=== PATIENT | male | born 1935 | race African-American/Black ===

== ENCOUNTER 2019-01-11 18:46 | Emergency (ER) | payer MEDICARE, SELFPAY ==
[2019-01-11 19:22] VITALS: BP 154/88; PULSE 74; RESP 12; TEMP 36.4; O2SAT 99
--- NOTE | 2019-01-11 19:47 | ED.EXTPRO ---
HPI - Extremity Problem <Fina Jorge PA-C - Last Filed: 01/11/19 22:32> General Chief complaint: Extremity Problem,Nontraumatic Stated complaint: swollen leg Time Seen by Provider: 01/11/19 18:52 Source: patient Mode of arrival: ambulatory Limitations: no limitations History of Present Illness HPI Narrative: This 83-year-old male was sent here by PCP due to left lower extremity swelling for about 4 days, maybe worse later in the day. He denies any trauma. He denies any pain in the leg or foot. He denies any chest pain or dyspnea and reports that he is feeling well. he does not have any history of blood clots or heart disease. He has not had swelling like this in the past. PCP was concerned that [place] might need an [place] Related Data Home Medications Medication Instructions Recorded Confirmed HYDROCHLOROTHIAZIDE (Hydrodiuril / 25 mg PO Q DAY #0 11/24/10 Hctz) Metoprolol Tartrate (Lopressor) 50 mg PO Q DAY #0 11/24/10 Previous Rx's Medication Instructions Recorded rivaroxaban [Xarelto] 15 mg PO BID 21 Days #42 tab 01/11/19 Review of Systems <Fina Jorge PA-C - Last Filed: 01/11/19 22:32> Review of Systems ROS Unobtainable: All systems reviewed & are unremarkable except as noted in HPI and below PFSH <Fina Jorge PA-C - Last Filed: 01/11/19 22:32> Medical History (Updated 01/11/19 @ 21:07 by Fina Jorge PA-C) HTN (hypertension) (Chronic) Seasonal allergies (Chronic) History of malignant neoplasm of prostate (Resolved) Surgical History (Updated 01/11/19 @ 20:18 by Fina Jorge PA-C) No history of previous surgery (Chronic) Comment: Never smoker Exam <Fina Jorge PA-C - Last Filed: 01/11/19 22:32> Narrative Exam Narrative: GENERAL APPEARANCE: Patient sitting comfortably, in no distress. NECK/THYROID: Neck supple LUNGS: Clear to auscultation bilaterally. HEART: Regular rate and rhythm without murmur, normal S1, S2, no S3 or S4. ABDOMEN: Soft, NT, ND, + BS x 4 quadrants EXTREMITIES: No cyanosis, moderate left pedal edema, none on the right. Edema extends to the left inferior woody. No calf tenderness NEUROLOGIC: Alert and oriented, normal speech, gait and coordination. Initial Vital Signs Initial Vital Signs: Vital Signs Temperature 97.6 F 01/11/19 19:22 Pulse Rate 74 01/11/19 19:22 Respiratory Rate 12 01/11/19 19:22 Blood Pressure 154/88 H 01/11/19 19:22 Pulse Oximetry 99 01/11/19 19:22 <Yovana Singleton DO - Last Filed: 01/12/19 01:42> Initial Vital Signs Initial Vital Signs: Vital Signs Temperature 97.6 F 01/11/19 19:22 Pulse Rate 74 01/11/19 19:22 Respiratory Rate 12 01/11/19 19:22 Blood Pressure 154/88 H 01/11/19 19:22 Pulse Oximetry 99 01/11/19 19:22 Course <Fina Jorge PA-C - Last Filed: 01/11/19 22:32> Additional Information: Per tractor technician patient 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 He has been asymptomatic aside from painless unilateral swelling. will start Xarelto tonight, and he will have prescription filled over here in the morning prior to returning to the [place]. Reviewed findings with he and his , and advised he needs to return to ED if any acute changes such as new chest pain or dyspnea, and they are agreeable. Advised follow-up with PCP in the next few days and subsequent there also dosing to be prescribed there after 21 days of the b.i.d. dosing. He does not have any personal or family history of DVT or risk factors such as recent surgery or immobility. Further workup, i.e. for occult malignancy, can be undertaken with PCP if felt warranted. DVT confirmed on subsequent review with radiologist Orders Ordered: ED Orders 01/11/19 19:54 US periph venous low extrem lt Stat Discontinued Medications Levofloxacin (Levaquin) 750 mg in 150 mls @ 100 mls/hr IV NOW ONE Stop: 01/11/19 21:40 Last Admin: 01/11/19 20:29 Dose: Not Given Rivaroxaban (Xarelto) 15 mg PO NOW ONE Stop: 01/11/19 20:55 Last Admin: 01/11/19 21:16 Dose: 15 mg Vital Signs - 8 hr 01/11/19 19:22 01/11/19 21:20 Temperature 97.6 F Pulse Rate 74 62 Respiratory Rate 12 18 Blood Pressure 154/88 H Blood Pressure [Left Arm] 150/78 H Pulse Oximetry 99 97 <Yovana Singleton DO - Last Filed: 01/12/19 01:42> Orders Ordered: ED Orders 01/11/19 19:54 US periph venous low extrem lt Stat Discontinued Medications Levofloxacin (Levaquin) 750 mg in 150 mls @ 100 mls/hr IV NOW ONE Stop: 01/11/19 21:40 Last Admin: 01/11/19 20:29 Dose: Not Given Rivaroxaban (Xarelto) 15 mg PO NOW ONE Stop: 01/11/19 20:55 Last Admin: 01/11/19 21:16 Dose: 15 mg Vital Signs - 8 hr 01/11/19 19:22 01/11/19 21:20 Temperature 97.6 F Pulse Rate 74 62 Respiratory Rate 12 18 Blood Pressure 154/88 H Blood Pressure [Left Arm] 150/78 H Pulse Oximetry 99 97 MDM - Extremity (Nontraumatic) <Fina Jorge PA-C - Last Filed: 01/11/19 22:32> Imaging Data Venous US: Radiologist's impression: [place] [address] Ultrasound Report Addendum Patient: Jaiden Hurd#: [id number] : 6Acct:[id number] Age/Sex: 83 / MDate of Service: 01/11/19 Loc: ED Accession Number: [id number] Procedure: US [facility] venous low extrem lt Ordering Provider: Fina Jorge P.A-C ADDENDUM This report includes an Addendum and supersedes previous reports for this exam. PROCEDURE: US PERIP VENOUS LOW EXTREM LT INDICATIONS: unilateral edema TECHNIQUE: Real-time imaging, as well as color and pulse Doppler interrogation, were performed of the lower extremity deep veins from the inguinal ligament to the popliteal fossa. COMPARISON: None. FINDINGS: There is segmental deep venous thrombosis, likely occlusive within the left popliteal vein. The remainder of the left lower extremity deep venous system appears patent. IMPRESSION: 1. Segmental occlusive deep venous thrombosis within the left popliteal vein. Dictated by: Bethel Craft M.D. on 01/11/2019 at 21:40 Approved by: Bethel Craft M.D. on 01/11/2019 at 21:40 ADDENDUM: Findings discussed with AMISHA Joy on 01/11/19 at 10:15 PM. Dictated by: Bethel Craft M.D. on 01/11/2019 at 22:18 Approved by: Bethel Craft M.D. on 01/11/2019 at 22:20 Addendum Dictated By:Bethel Craft MD Addendum Signed By: Addendum Cosigned By: DD/ /24/2223 TD/TT: 01/11/1902/24/2223 PROCEDURE: US PERIPH VENOUS LOW EXTREM LT INDICATIONS: unilateral edema TECHNIQUE: Real-time imaging, as well as color and pulse Doppler interrogation, were performed of the lower extremity deep veins from the inguinal ligament to the popliteal fossa. COMPARISON: None. FINDINGS: The common femoral, femoral and popliteal veins are normally compressible, and free of intraluminal thrombus. Color and pulse Doppler demonstrate normal phasic intraluminal flow. There is normal augmentation response to distal compression maneuver. IMPRESSION: 1. No evidence of deep venous thrombosis in the left lower extremity. Dictated by: Bethel Craft M.D. on 01/11/2019 at 21:40 Approved by: Bethel Craft M.D. on 01/11/2019 at 21:40 Discharge Plan Departure Patient Disposition: Home Clinical Impression: Deep vein thrombosis of lower extremity Qualifiers: Affected thrombotic vein of extremity: popliteal Chronicity: acute Laterality: left Qualified Code(s): I82.432 - Acute embolism and thrombosis of left popliteal vein Discharge Date/Time: 01/11/19 21:30 Interventions: ED Discharge Assessment Last Done: 01/11/19 21:30 Instructions: DI for Deep Vein Thrombosis Prescriptions: New Xarelto 15 mg tablet 15 mg PO BID 21 Days Qty: 42 RF: 0 No Action HYDROCHLOROTHIAZIDE (Hydrodiuril / Hctz) 25 mg PO Q DAY Qty: 0 RF: 0 Metoprolol Tartrate (Lopressor) 50 mg PO Q DAY Qty: 0 RF: 0 Referrals: Dayron Ball MD [Physician] - <Yovana Singleton DO - Last Filed: 01/12/19 01:42> Cosign ED Attending Estherignature Attestation: I was immediately available in the department for consultation. Documentation has been reviewed. I agree with assessment and plan.
--- NOTE | 2019-01-11 19:54 | DI.US.S_ITS ---
PROCEDURE: US PERIPH VENOUS LOW EXTREM LT INDICATIONS: unilateral edema TECHNIQUE: Real-time imaging, as well as color and pulse Doppler interrogation, were performed of the lower extremity deep veins from the inguinal ligament to the popliteal fossa. COMPARISON: None. FINDINGS: The common femoral, femoral and popliteal veins are normally compressible, and free of intraluminal thrombus. Color and pulse Doppler demonstrate normal phasic intraluminal flow. There is normal augmentation response to distal compression maneuver. IMPRESSION: 1. No evidence of deep venous thrombosis in the left lower extremity. Dictated by: Bethel Craft M.D. on 01/11/2019 at 21:40 Approved by: Bethel Craft M.D. on 01/11/2019 at 21:40
--- NOTE | 2019-01-11 20:10 | ED_ITS ---
HPI - Extremity Problem <Fina Jorge PA-C - Last Filed: 01/11/19 22:32> General Chief complaint: Extremity Problem,Nontraumatic Stated complaint: swollen leg Time Seen by Provider: 01/11/19 18:52 Source: patient Mode of arrival: ambulatory Limitations: no limitations History of Present Illness HPI Narrative: This 83-year-old male was sent here by PCP due to left lower extremity swelling for about 4 days, maybe worse later in the day. He denies any trauma. He denies any pain in the leg or foot. He denies any chest pain or dyspnea and reports that he is feeling well. he does not have any history of blood clots or heart disease. He has not had swelling like this in the past. PCP was concerned that he might need an ultrasound [place] Related Data Home Medications Medication Instructions Recorded Confirmed HYDROCHLOROTHIAZIDE (Hydrodiuril / 25 mg PO Q DAY #0 11/24/10 Hctz) Metoprolol Tartrate (Lopressor) 50 mg PO Q DAY #0 11/24/10 Previous Rx's Medication Instructions Recorded rivaroxaban [Xarelto] 15 mg PO BID 21 Days #42 tab 01/11/19 Review of Systems <Fina Jorge PA-C - Last Filed: 01/11/19 22:32> Review of Systems ROS Unobtainable: All systems reviewed & are unremarkable except as noted in HPI and below PFSH <Fina Jorge PA-C - Last Filed: 01/11/19 22:32> Medical History (Updated 01/11/19 @ 21:07 by Fina Jorge PA-C) HTN (hypertension) (Chronic) Seasonal allergies (Chronic) History of malignant neoplasm of prostate (Resolved) Surgical History (Updated 01/11/19 @ 20:18 by Fina Jorge PA-C) No history of previous surgery (Chronic) Comment: Never smoker Exam <Fina Jorge PA-C - Last Filed: 01/11/19 22:32> Narrative Exam Narrative: GENERAL APPEARANCE: Patient sitting comfortably, in no distress. NECK/THYROID: Neck supple LUNGS: Clear to auscultation bilaterally. HEART: Regular rate and rhythm without murmur, normal S1, S2, no S3 or S4. ABDOMEN: Soft, NT, ND, + BS x 4 quadrants EXTREMITIES: No cyanosis, moderate left pedal edema, none on the right. Edema extends to the left inferior woody. No calf tenderness NEUROLOGIC: Alert and oriented, normal speech, gait and coordination. Initial Vital Signs Initial Vital Signs: Vital Signs Temperature 97.6 F 01/11/19 19:22 Pulse Rate 74 01/11/19 19:22 Respiratory Rate 12 01/11/19 19:22 Blood Pressure 154/88 H 01/11/19 19:22 Pulse Oximetry 99 01/11/19 19:22 <Yovana Singleton DO - Last Filed: 01/12/19 01:42> Initial Vital Signs Initial Vital Signs: Vital Signs Temperature 97.6 F 01/11/19 19:22 Pulse Rate 74 01/11/19 19:22 Respiratory Rate 12 01/11/19 19:22 Blood Pressure 154/88 H 01/11/19 19:22 Pulse Oximetry 99 01/11/19 19:22 Course <Fina Jorge PA-C - Last Filed: 01/11/19 22:32> Additional Information: Per word processor technician patient 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 He has been asymptomatic aside from painless unilateral swelling. will start Xarelto tonight, and he will have prescription filled over here in the morning prior to returning to the [place]. Reviewed findings with he and his , and advised he needs to return to ED if any acute changes such as new chest pain or dyspnea, and they are agreeable. Advised follow-up with PCP in the next few days and subsequent there also dosing to be prescribed there after 21 days of the b.i.d. dosing. He does not have any personal or family history of DVT or risk factors such as recent surgery or immobility. Further workup, i.e. for occult malignancy, can be undertaken with PCP if felt warranted. DVT confirmed on subsequent review with radiologist Orders Ordered: ED Orders 01/11/19 19:54 US periph venous low extrem lt Stat Discontinued Medications Levofloxacin (Levaquin) 750 mg in 150 mls @ 100 mls/hr IV NOW ONE Stop: 01/11/19 21:40 Last Admin: 01/11/19 20:29 Dose: Not Given Rivaroxaban (Xarelto) 15 mg PO NOW ONE Stop: 01/11/19 20:55 Last Admin: 01/11/19 21:16 Dose: 15 mg Vital Signs - 8 hr 01/11/19 19:22 01/11/19 21:20 Temperature 97.6 F Pulse Rate 74 62 Respiratory Rate 12 18 Blood Pressure 154/88 H Blood Pressure [Left Arm] 150/78 H Pulse Oximetry 99 97 <Yovana Singleton DO - Last Filed: 01/12/19 01:42> Orders Ordered: ED Orders 01/11/19 19:54 US periph venous low extrem lt Stat Discontinued Medications Levofloxacin (Levaquin) 750 mg in 150 mls @ 100 mls/hr IV NOW ONE Stop: 01/11/19 21:40 Last Admin: 01/11/19 20:29 Dose: Not Given Rivaroxaban (Xarelto) 15 mg PO NOW ONE Stop: 01/11/19 20:55 Last Admin: 01/11/19 21:16 Dose: 15 mg Vital Signs - 8 hr 01/11/19 19:22 01/11/19 21:20 Temperature 97.6 F Pulse Rate 74 62 Respiratory Rate 12 18 Blood Pressure 154/88 H Blood Pressure [Left Arm] 150/78 H Pulse Oximetry 99 97 MDM - Extremity (Nontraumatic) <Fina Jorge PA-C - Last Filed: 01/11/19 22:32> Imaging Data Venous US: Radiologist's impression: [place] [address] Ultrasound Report Addendum Patient: Jaiden Hurd#: [id number] : 6Acct:[id number] Age/Sex: 83 / MDate of Service: 01/11/19 Loc: ED Accession Number: [id number] Procedure: [facility] venous low extrem lt Ordering Provider: Fina Jorge P.A-C ADDENDUM This report includes an Addendum and supersedes previous reports for this exam. PROCEDURE: US PERIP VENOUS LOW EXTREM LT INDICATIONS: unilateral edema TECHNIQUE: Real-time imaging, as well as color and pulse Doppler interrogation, were performed of the lower extremity deep veins from the inguinal ligament to the popliteal fossa. COMPARISON: None. FINDINGS: There is segmental deep venous thrombosis, likely occlusive within the left popliteal vein. The remainder of the left lower extremity deep venous system appears patent. IMPRESSION: 1. Segmental occlusive deep venous thrombosis within the left popliteal vein. Dictated by: Bethel Craft M.D. on 01/11/2019 at 21:40 Approved by: Bethel Craft M.D. on 01/11/2019 at 21:40 ADDENDUM: Findings discussed with AMISHA Joy on 01/11/19 at 10:15 PM. Dictated by: Bethel Craft M.D. on 01/11/2019 at 22:18 Approved by: Bethel Craft M.D. on 01/11/2019 at 22:20 Addendum Dictated By:Bethel Craft MD Addendum Signed By: Addendum Cosigned By: DD/ /24/2223 TD/TT: 01/11/1902/24/2223 PROCEDURE: US PERIPH VENOUS LOW EXTREM LT INDICATIONS: unilateral edema TECHNIQUE: Real-time imaging, as well as color and pulse Doppler interrogation, were performed of the lower extremity deep veins from the inguinal ligament to the popliteal fossa. COMPARISON: None. FINDINGS: The common femoral, femoral and popliteal veins are normally compressible, and free of intraluminal thrombus. Color and pulse Doppler demonstrate normal phasic intraluminal flow. There is normal augmentation response to distal compression maneuver. IMPRESSION: 1. No evidence of deep venous thrombosis in the left lower extremity. Dictated by: Bethel Craft M.D. on 01/11/2019 at 21:40 Approved by: Bethel Craft M.D. on 01/11/2019 at 21:40 Discharge Plan Departure Patient Disposition: Home Clinical Impression: Deep vein thrombosis of lower extremity Qualifiers: Affected thrombotic vein of extremity: popliteal Chronicity: acute Laterality: left Qualified Code(s): I82.432 - Acute embolism and thrombosis of left popliteal vein Discharge Date/Time: 01/11/19 21:30 Interventions: ED Discharge Assessment Last Done: 01/11/19 21:30 Instructions: DI for Deep Vein Thrombosis Prescriptions: New Xarelto 15 mg tablet 15 mg PO BID 21 Days Qty: 42 RF: 0 No Action HYDROCHLOROTHIAZIDE (Hydrodiuril / Hctz) 25 mg PO Q DAY Qty: 0 RF: 0 Metoprolol Tartrate (Lopressor) 50 mg PO Q DAY Qty: 0 RF: 0 Referrals: Dayron Ball MD [Physician] - <Yovana Singleton DO - Last Filed: 01/12/19 01:42> Cosign ED Attending Estherignature Attestation: I was immediately available in the department for consultation. Documentation has been reviewed. I agree with assessment and plan.
[2019-01-11] MEDS: RIVAROXABAN 10 MG TABLET 15 MG PO (21:16)
[2019-01-11 21:20] VITALS: BP 150/78; PULSE 62; RESP 18; O2SAT 97
== END 2019-01-11 21:30 | disposition home or self-care (01) ==
PROVIDERS: Emergency Provider Internal Medicine
DX: I82.432 Acute embolism and thrombosis of left popliteal vein (principal)
CPT/HCPCS: 93971; 99282; 99283

== ENCOUNTER → 2019-04-07 09:38 | Outpatient (CLI) | payer MEDICARE, SELFPAY ==
--- NOTE | 2019-04-07 | DI.NM.S_ITS ---
PROCEDURE: NM BONE SCAN WHOLE BODY RADIOPHARMACEUTICAL: 22 mCi Tc-99m MDP IV. INDICATIONS: PROSTATE CANCER TECHNIQUE: Delayed whole-body scintigrams were obtained approximately 3-4 hours after intravenous injection of radiotracer. Anterior and posterior views were acquired from vertex to feet. Additional left and right oblique views of the pelvis were obtained. COMPARISON: None. FINDINGS: No definite suspicious osseous uptake suggestive of metastatic disease. There are bilateral foci of uptake medially in the mid foot likely related to degenerative changes in the region of the 1st tarsometatarsal joints. Mild periarticular uptake also demonstrated along the knees, shoulders, and wrists bilaterally likely related to degenerative changes. There is a small linear region of uptake in the left paracentral region of the cervical spine likely secondary to degenerative disc disease. IMPRESSION: 1. No definite evidence of osseous metastatic disease. 2. Bilateral foci of periarticular uptake as well as uptake in the mid cervical spine likely related to degenerative changes. If clinically indicated, a dedicated cervical spine x-ray may be performed for further evaluation. Dictated by: Bethel Craft M.D. on 04/08/2019 at 8:07 Approved by: Bethel Craft M.D. on 04/08/2019 at 8:10
== END ==
PROVIDERS: Visit Provider Family Medicine
DX: C61 Malignant neoplasm of prostate (principal)
CPT/HCPCS: 78306; A9503

== ENCOUNTER → 2020-11-03 11:10 | Outpatient (CLI) | payer MEDICARE, SELFPAY ==
--- NOTE | 2020-11-03 11:24 | DI.CT.S_ITS ---
PROCEDURE: CT ABDOMEN PELVIS WO/W CON INDICATIONS: Flank pain TECHNIQUE: Optional 5 mm thick noncontrast images acquired from the diaphragm to the symphysis pubis. After the administration of intravenous contrast, 5 mm thick images acquired from the diaphragm to the symphysis pubis after a 10-minute delay. 2 mm thick coronal and sagittal reformats were then performed of the kidneys and ureters. For radiation dose reduction, the following was used: automated exposure control, adjustment of mA and/or kV according to patient size. COMPARISON: None. FINDINGS: Image quality: Excellent. Lung bases: Lung bases are clear. Heart size is normal. Urinary system: Several cortical and corticomedullary cysts are present bilaterally. There is a mildly complicated, finely septated parapelvic cyst in the right renal sinus with fine septal calcifications measuring 4.0 x 3.4 cm in the axial plane. No solid masses in either kidney. There is compression of the right midpole collecting system by the right parapelvic cyst. Collecting system appears otherwise normal. Opacified portions of both ureters demonstrate normal caliber. Urinary bladder wall appears thickened, potentially related under distension. The prostate gland is enlarged and there brachytherapy seeds present.. No calcified bladder stones. Other solid organs: Liver is normal in size and enhancement. Gallbladder is unremarkable. . Biliary system is non dilated. Pancreas enhances normally. Spleen is normal in size and enhancement. No adrenal nodules. Peritoneum and bowel: Bowel loops demonstrate normal wall thickness and caliber. No free fluid or air. Nodes and vessels: No retroperitoneal or mesenteric adenopathy by size criteria. Aorta and inferior vena cava are normal in size. Abdominal wall: No ventral hernias. Pelvis: No pathologic free pelvic fluid. No inguinal hernias or adenopathy. Bones: No suspicious bony lesions. There is a bone island in the right sacral ala. Degenerative disc and endplate changes are seen in the lumbar spine. No vertebral body compression fractures. IMPRESSION: 1. No evidence of obstructive uropathy or urinary calcification. 2. There is a mildly complicated right parapelvic cyst measuring 4.0 cm. Consider one year follow-up. 3. Other simple appearing bilateral renal cysts. 4. Prostatomegaly with brachytherapy seeds present. Dictated by: Kamilla Avila M.D. on 11/03/2020 at 15:18 Approved by: Kamilla Avila M.D. on 11/03/2020 at 15:26
== END ==
PROVIDERS: PCP Family Medicine; Referring Provider Family Medicine; Visit Provider Family Medicine
DX: R10.9 Unspecified abdominal pain (principal); N28.1 Cyst of kidney, acquired
CPT/HCPCS: 74178; Q9967

== ENCOUNTER → 2021-02-13 10:20 | Outpatient (CLI) | payer MEDICARE, SELFPAY ==
[2021-02-13 11:56] LABS: BUN Creatinine Ratio 22.1 (6-22); Blood Urea Nitrogen 23 mg/dL (9-20); Calcium 9.3 mg/dL (8.4-10.2); Carbon Dioxide 28 mmol/L (22-32); Chloride 104 mmol/L (98-107); Estimated Glomerular Filt Rate > 60.0 mL/min (>60); Glucose 105 mg/dL (80-110); HEMOLYSIS < 15 (0-50); Potassium 4.1 mmol/L (3.4-5.1); Sodium 137 mmol/L (137-145)
--- NOTE | 2021-02-13 12:53 | DI.CT.S_ITS ---
PROCEDURE: CT ABDOMEN PELVIS WO/W CON INDICATIONS: PARAPELVIC RENAL CYST TECHNIQUE: After the administration of oral contrast, 5 mm thick sections acquired from the diaphragms to the iliac crests. After the administration of intravenous contrast, 5 mm thick sections acquired from the diaphragms to the symphysis. 5 mm thick coronal and sagittal reformats were acquired. For radiation dose reduction, the following was used: automated exposure control, adjustment of mA and/or kV according to patient size. COMPARISON: [facility], CT, CT ABDOMEN PELVIS WO/W CON, 11/03/2020, 11:13. FINDINGS: Image quality: Excellent. Lung bases: Lung bases are clear. Heart size is normal. Solid organs: Liver: The liver has no mass or intrahepatic biliary ductal dilatation. The portal vein and hepatic veins are patent. Biliary: The gallbladder has no gallstones, pericholecystic fluid, gallbladder wall thickening, or surrounding inflammatory change. Pancreas: The pancreas has no mass or ductal dilatation. There is no surrounding inflammation. Spleen: Normal size. There are no masses. Adrenals: No hypertrophy or nodules. Kidneys: Multiple cortical and corticomedullary cysts are present bilaterally. A right mildly complicated, finely septated parapelvic cyst in the right renal sinus with fine septal calcifications measuring 4.0 x 3.4 centimeters is unchanged in size and appearance on the current exam compared to 11/03/2020. No solid mass. Peritoneum and bowel: The distal esophagus and stomach are normal. The small bowel has a normal caliber and appearance. There is increased stool throughout the large bowel. No free fluid or air. Nodes and vessels: No retroperitoneal or mesenteric adenopathy by size criteria. Aorta and inferior vena cava are normal in size. Miscellaneous: No abdominal wall mass or hernia. PELVIS: Genitourinary: The bladder has no wall thickening or mass. No bladder calcifications. The prostate is enlarged with brachytherapy seeds present. Miscellaneous: No inguinal hernias or adenopathy. Bones: Degenerative changes with no focal abnormality. Multiple osteophytes are seen of the lumbar spine. No vertebral body compression fractures. A bone island in the right sacral ala is unchanged. IMPRESSION: 1. 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 Recommend follow-up at 1 year status post initial exam and then annually for 5 years to ensure stability. 2. Multiple simple bilateral renal cysts. Dictated by: Nima Metz M.D. on 02/13/2021 at 14:27 Approved by: Nima Metz M.D. on 02/13/2021 at 14:41
== END ==
PROVIDERS: PCP Family Medicine; Referring Provider Family Medicine; Visit Provider Family Medicine
DX: N28.1 Cyst of kidney, acquired (principal)
CPT/HCPCS: 36415; 74178; 80048; Q9967

== ENCOUNTER → 2021-10-12 10:01 | Outpatient (CLI) | payer MEDICARE, SELFPAY ==
[2021-10-12 19:24] LABS: INR 1.8 (0.9-1.3); Prothrombin Time 20.5 SECONDS (10.1-12.7)
[2021-10-12 19:31] LABS: Add Manual Diff / Slide Review NO; Basophils Absolute Auto 100 /uL (0-100); Eosinophils Absolute Auto 100 /uL (0-450); Eosinophils Percent Auto 1.5 % (2-4); Hematocrit 39.3 % (41-53); Lymphocytes Absolute Auto 2000 /uL (1100-4500); Lymphocytes Percent Auto 39.2 % (25-40); Mean Corpuscular Hemoglobin 27.8 PG (26-34); Mean Corpuscular Volume 84.3 fL (80-100); Monocytes Absolute Auto 600 /uL (0-900); Monocytes Percent Auto 12.5 % (3-14); Neutrophils Absolute Auto 2300 /uL (1500-7000); Neutrophils Percent Auto 45.8 % (50-75); Platelet Count 264 X10^3/uL (150-400); Red Blood Cell Count 4.67 X10^6/uL (4.5-5.9); Red Cell Distribution Width 14.6 % (11.6-14.8); White Blood Cell Count 5.1 X10^3/uL (4.5-11.0)
[2021-10-12 19:45] LABS: Alanine Aminotransferase 25 IU/L (<50); Albumin 4.1 g/dL (3.5-5.0); Albumin Globulin Ratio 1.2 (1.0-2.8); Alkaline Phosphatase 63 U/L (38-126); Aspartate Aminotransferase 40 IU/L (17-59); BUN Creatinine Ratio 22.4 (6-22); Bilirubin Total 0.7 mg/dL (0.2-1.3); Blood Urea Nitrogen 26 mg/dL (9-20); Calcium 9.5 mg/dL (8.4-10.2); Carbon Dioxide 28 mmol/L (22-32); Chloride 106 mmol/L (98-107); Cholesterol 227 mg/dL (140-199); Estimated Glomerular Filt Rate 59.8 mL/min (>60); Globulin 3.5 g/dL (1.7-4.1); Glucose 100 mg/dL (80-110); HDL Cholesterol 79 mg/dL (40-60); HEMOLYSIS < 15 (0-50); LDL Cholesterol Calculated 130 mg/dL (<100); Potassium 4.4 mmol/L (3.4-5.1); Sodium 138 mmol/L (137-145); Total Protein 7.6 g/dL (6.3-8.2); Triglycerides 92 mg/dL (35-150)
== END ==
PROVIDERS: PCP Family Medicine; Visit Provider Family Medicine
DX: I10 Essential (primary) hypertension (principal); I82.409 Acute embolism and thrombosis of unspecified deep veins of unspecified lower extremity; Z79.01 Long term (current) use of anticoagulants
CPT/HCPCS: 80053; 80061; 85025; 85610

== ENCOUNTER → 2021-11-08 10:42 | Outpatient (CLI) | payer OTHER, MEDICARE, SELFPAY ==
--- NOTE | 2021-11-08 | DI.MRI.S_ITS ---
PROCEDURE: MR BRAIN (IAC) WWO CON INDICATIONS: Sensorineural hearing loss, bilateral TECHNIQUE: Noncontrast sagittal T1 spin echo, axial FLAIR, axial gradient echo, axial diffusion and ADC through the brain. Axial thin-slice 3D CISS, coronal TruFISP, axial T1 spin echo with fat saturation through the internal auditory canals. After the administration of contrast, thin slice axial and coronal T1 spin echo with fat saturation through the internal auditory canals, and axial T1 spin echo with fat saturation through the brain. COMPARISON: None. FINDINGS: Image quality: Excellent. Cerebellopontine angles: No cerebellopontine angle masses. Inner ear structures appear normally formed. No suspicious enhancement in the internal auditory canal or along the course of the 7th cranial nerve. CSF spaces: Ventricles are normal in size and shape. No extra-axial fluid collections. Basal cisterns are patent. Brain: No intracranial bleeds or mass effects. Tirado-white matter interface is intact. No abnormal intracranial enhancement. Diffusion weighted images demonstrate no acute ischemic insults. Brainstem appears normal. Normal intravascular flow voids are present. Skull and face: Calvarial marrow signal is normal. Orbits appear normal. Sinuses: Right maxillary sinus mucosal thickening measures up to 4 mm with internal inter sinus debris noted in IMPRESSION: Unremarkable MRI of the internal auditory canals without evidence of mass or abnormal enhancement. Mild atrophy and white matter chronic ischemic change without intracranial infarct or hemorrhage. Incidental right maxillary mucosal sinus disease Approved by: Lance Wheatley M.D. on 11/08/2021 at 12:50
== END ==
PROVIDERS: PCP Family Medicine; Referring Provider Physician Assistant Surgical; Visit Provider Physician Assistant Surgical
DX: H90.3 Sensorineural hearing loss, bilateral (principal)
CPT/HCPCS: 70553; A9579

== ENCOUNTER → 2022-11-20 10:20 | Outpatient (CLI) | payer MEDICARE, SELFPAY ==
[2022-11-20 19:08] LABS: Add Manual Diff / Slide Review NO; Basophils Absolute Auto 0 /uL (0-100); Basophils Percent Auto 0.5 % (0-2); Eosinophils Absolute Auto 100 /uL (0-450); Eosinophils Percent Auto 1.5 % (2-4); Hematocrit 38.4 % (41-53); Hemoglobin 12.6 g/dL (13.5-17.5); Lymphocytes Absolute Auto 1300 /uL (1100-4500); Lymphocytes Percent Auto 20.4 % (25-40); Mean Corpuscular HGB Conc 32.9 % (30-36); Mean Corpuscular Hemoglobin 27.8 PG (26-34); Mean Corpuscular Volume 84.4 fL (80-100); Monocytes Absolute Auto 700 /uL (0-900); Monocytes Percent Auto 11.7 % (3-14); Neutrophils Absolute Auto 4100 /uL (1500-7000); Neutrophils Percent Auto 65.9 % (50-75); Platelet Count 287 X10^3/uL (150-400); Red Blood Cell Count 4.54 X10^6/uL (4.5-5.9); Red Cell Distribution Width 14.4 % (11.6-14.8); White Blood Cell Count 6.3 X10^3/uL (4.5-11.0)
[2022-11-20 19:18] LABS: D Dimer 282 ng/ml (<500)
[2022-11-20 19:30] LABS: Alanine Aminotransferase 25 IU/L (<50); Albumin 3.7 g/dL (3.5-5.0); Albumin Globulin Ratio 1.1 (1.0-2.8); Alkaline Phosphatase 78 U/L (38-126); Aspartate Aminotransferase 41 IU/L (17-59); BUN Creatinine Ratio 21.1 (6-22); Bilirubin Total 0.4 mg/dL (0.2-1.3); Blood Urea Nitrogen 23 mg/dL (9-20); Calcium 8.9 mg/dL (8.4-10.2); Carbon Dioxide 29 mmol/L (22-32); Chloride 102 mmol/L (98-107); Estimated Glomerular Filt Rate > 60 mL/min (>60); Globulin 3.5 g/dL (1.7-4.1); Glucose 92 mg/dL (80-110); HEMOLYSIS < 15 (0-50); Potassium 4.5 mmol/L (3.4-5.1); Sodium 139 mmol/L (137-145); Total Protein 7.2 g/dL (6.3-8.2)
== END ==
PROVIDERS: PCP Physician Assistant; Visit Provider Physician Assistant
DX: I82.409 Acute embolism and thrombosis of unspecified deep veins of unspecified lower extremity (principal); Z79.899 Other long term (current) drug therapy; R20.9 Unspecified disturbances of skin sensation; Z79.01 Long term (current) use of anticoagulants
CPT/HCPCS: 80053; 85025; 85379

== ENCOUNTER → 2022-11-29 14:45 | Outpatient (CLI) | payer MEDICARE, SELFPAY ==
[2022-12-02 10:07] LABS: Fecal Immunochemical Test Negative (Negative)
== END ==
PROVIDERS: PCP Physician Assistant; Visit Provider Physician Assistant
DX: D64.9 Anemia, unspecified (principal); Z12.11 Encounter for screening for malignant neoplasm of colon
CPT/HCPCS: 82274

== ENCOUNTER → 2022-12-18 09:10 | Outpatient (CLI) | payer MEDICARE, SELFPAY ==
[2022-12-18 19:34] LABS: Add Manual Diff / Slide Review NO; Basophils Absolute Auto 100 /uL (0-100); Basophils Percent Auto 0.8 % (0-2); Eosinophils Absolute Auto 100 /uL (0-450); Eosinophils Percent Auto 1.6 % (2-4); Hematocrit 36.1 % (41-53); Hemoglobin 11.8 g/dL (13.5-17.5); Lymphocytes Absolute Auto 1700 /uL (1100-4500); Lymphocytes Percent Auto 18.8 % (25-40); Mean Corpuscular HGB Conc 32.6 % (30-36); Mean Corpuscular Hemoglobin 27.4 PG (26-34); Mean Corpuscular Volume 84.2 fL (80-100); Monocytes Absolute Auto 1000 /uL (0-900); Monocytes Percent Auto 11.8 % (3-14); Neutrophils Absolute Auto 6000 /uL (1500-7000); Platelet Count 423 X10^3/uL (150-400); Red Blood Cell Count 4.29 X10^6/uL (4.5-5.9); Red Cell Distribution Width 14.2 % (11.6-14.8); White Blood Cell Count 8.9 X10^3/uL (4.5-11.0)
[2022-12-18 20:53] LABS: Erythrocyte Sedimentation Rate 66 MM/HR (0-15)
== END ==
PROVIDERS: PCP Physician Assistant; Visit Provider Physician Assistant
DX: L03.011 Cellulitis of right finger (principal); L03.90 Cellulitis, unspecified; R79.1 Abnormal coagulation profile
CPT/HCPCS: 84550; 85025; 85651

== ENCOUNTER → 2023-01-20 11:01 | Outpatient (CLI) | payer MEDICARE, SELFPAY ==
[2023-01-20 20:24] LABS: Add Manual Diff / Slide Review NO; Basophils Absolute Auto 0 /uL (0-100); Basophils Percent Auto 0.5 % (0-2); Eosinophils Absolute Auto 100 /uL (0-450); Eosinophils Percent Auto 1.7 % (2-4); Hematocrit 34.4 % (41-53); Hemoglobin 11.3 g/dL (13.5-17.5); Lymphocytes Absolute Auto 1900 /uL (1100-4500); Lymphocytes Percent Auto 27.5 % (25-40); Mean Corpuscular Hemoglobin 27.2 PG (26-34); Mean Corpuscular Volume 82.6 fL (80-100); Monocytes Absolute Auto 900 /uL (0-900); Monocytes Percent Auto 13.5 % (3-14); Neutrophils Absolute Auto 3900 /uL (1500-7000); Neutrophils Percent Auto 56.8 % (50-75); Platelet Count 276 X10^3/uL (150-400); Red Blood Cell Count 4.16 X10^6/uL (4.5-5.9); Red Cell Distribution Width 14.7 % (11.6-14.8); White Blood Cell Count 6.8 X10^3/uL (4.5-11.0)
[2023-01-20 20:43] LABS: HEMOLYSIS < 15 (0-50); Iron 75 ug/dL (49-181)
[2023-01-20 20:45] LABS: Cholesterol 169 mg/dL (140-199); HDL Cholesterol 68 mg/dL (40-60); LDL Cholesterol Calculated 90 mg/dL (<100); Triglycerides 55 mg/dL (35-150)
[2023-01-20 20:53] LABS: Percent Iron Saturation 27 % (20-50); Total Iron Binding Capacity 275 ug/dL (261-462); Transferrin 185 mg/dL (206-381)
[2023-01-20 21:11] LABS: Ferritin 116 ng/mL (18-464)
[2023-01-20 21:17] LABS: INR 4.8 (0.9-1.3)
== END ==
PROVIDERS: PCP Physician Assistant; Visit Provider Physician Assistant
DX: I10 Essential (primary) hypertension (principal); D64.9 Anemia, unspecified; Z79.01 Long term (current) use of anticoagulants
CPT/HCPCS: 80061; 82728; 83540; 83550; 85025; 85610

== ENCOUNTER → 2023-04-01 13:15 | Outpatient (CLI) | payer MEDICARE, SELFPAY ==
[2023-04-01 20:25] LABS: Add Manual Diff / Slide Review NO; Basophils Absolute Auto 100 /uL (0-100); Basophils Percent Auto 0.8 % (0-2); Eosinophils Absolute Auto 100 /uL (0-450); Eosinophils Percent Auto 1.2 % (2-4); Hematocrit 34.4 % (41-53); Hemoglobin 11.2 g/dL (13.5-17.5); Lymphocytes Absolute Auto 2000 /uL (1100-4500); Lymphocytes Percent Auto 28.8 % (25-40); Mean Corpuscular HGB Conc 32.5 % (30-36); Mean Corpuscular Hemoglobin 26.8 PG (26-34); Mean Corpuscular Volume 82.5 fL (80-100); Monocytes Absolute Auto 1100 /uL (0-900); Monocytes Percent Auto 15.1 % (3-14); Neutrophils Absolute Auto 3800 /uL (1500-7000); Neutrophils Percent Auto 54.1 % (50-75); Platelet Count 366 X10^3/uL (150-400); Red Blood Cell Count 4.17 X10^6/uL (4.5-5.9); Red Cell Distribution Width 15.7 % (11.6-14.8)
[2023-04-01 20:48] LABS: Transferrin 172 mg/dL (206-381)
[2023-04-01 21:03] LABS: Ferritin 137 ng/mL (18-464)
[2023-04-01 21:17] LABS: Vitamin B12 403 pg/mL (239-931)
== END ==
PROVIDERS: PCP Physician Assistant; Visit Provider Physician Assistant
DX: D64.9 Anemia, unspecified (principal); I10 Essential (primary) hypertension
CPT/HCPCS: 82607; 82728; 84466; 85025

== ENCOUNTER → 2023-06-04 10:31 | Outpatient (CLI) | payer MEDICARE, SELFPAY ==
[2023-06-04 22:13] LABS: Alanine Aminotransferase 20 IU/L (<50); Albumin 3.8 g/dL (3.5-5.0); Albumin Globulin Ratio 1.2 (1.0-2.8); Alkaline Phosphatase 66 U/L (38-126); Aspartate Aminotransferase 30 IU/L (17-59); BUN Creatinine Ratio 22.2 (6-22); Bilirubin Total 0.4 mg/dL (0.2-1.3); Blood Urea Nitrogen 22 mg/dL (9-20); Calcium 9.5 mg/dL (8.4-10.2); Carbon Dioxide 27 mmol/L (22-32); Chloride 104 mmol/L (98-107); Estimated Glomerular Filt Rate > 60 mL/min (>60); Globulin 3.2 g/dL (1.7-4.1); Glucose 118 mg/dL (80-110); HEMOLYSIS < 15 (0-50); Sodium 138 mmol/L (137-145)
== END ==
PROVIDERS: PCP Physician Assistant; Visit Provider Physician Assistant
DX: Z12.5 Encounter for screening for malignant neoplasm of prostate (principal); R63.4 Abnormal weight loss; Z85.46 Personal history of malignant neoplasm of prostate
CPT/HCPCS: 80053; G0103

== ENCOUNTER → 2023-06-10 10:38 | Outpatient (CLI) | payer MEDICARE, SELFPAY ==
--- NOTE | 2023-06-10 10:40 | DI.CT.S_ITS ---
PROCEDURE: CT CHEST ABD PEL W CON INDICATIONS: unitentional weight loss TECHNIQUE: After the administration of oral and intravenous contrast, axial sections acquired from the supraclavicular neck to the pubic symphysis. Coronal and sagittal reformats were performed. For radiation dose reduction, the following was used: automated exposure control, adjustment of mA and/or kV according to patient size. COMPARISON: [facility], CT, CT ABDOMEN PELVIS WO/W CON, 02/13/2021, 12:49. FINDINGS: Image quality: Excellent. CHEST: Lower Neck: No enlarged lymph nodes. Thyroid: Unremarkable. Axillae: No enlarged lymph nodes. Chest Wall: Unremarkable. Lungs and Airways: A 4 mm pulmonary nodule is present at the lateral right lung base (series 5/image 261). A calcified granuloma is present within the left lower lobe. No other suspicious pulmonary nodules or acute airspace opacities. Pleura: No pneumothorax or pleural effusions. Heart: Heart size is normal. No pericardial effusion. Thoracic Vessels: The aorta and pulmonary arteries demonstrate normal size. Mediastinum and Kaitlyn: No enlarged lymph nodes. Esophagus: No wall thickening. There is a small hiatal hernia. ABDOMEN: Liver: Unremarkable. Gallbladder: Mildly contracted. Biliary ducts: Unremarkable. Pancreas: Unremarkable. Spleen: Unremarkable. Adrenal Glands: Unremarkable. Kidneys and Ureters: There are multiple low-density cystic lesions throughout the bilateral kidneys. No hydronephrosis. Stomach and Bowel: Stomach, small bowel loops, and colon are unremarkable. The appendix is not visualized; however there is no discrete right lower quadrant fluid or fat stranding to suggest acute appendicitis. Peritoneum: No abnormal intraperitoneal fluid. No free air. Ventral Wall: No hernia. Abdominal Nodes: No retroperitoneal or mesenteric adenopathy by size criteria. Vessels: Aorta and inferior vena cava are normal in size. PELVIS: Pelvic Organs: Unremarkable. Bladder: Unremarkable. Pelvic Nodes: No enlarged lymph nodes. Miscellaneous: No inguinal hernias are seen. Bones: Unremarkable. IMPRESSION: 1. No acute intra-abdominal or intrathoracic findings. The appendix is not visualized; however there are no ancillary findings to suggest acute appendicitis. 2. No findings to explain unintentional weight loss. Dictated by: Laura Joseph M.D. on 06/10/2023 at 13:45 Approved by: Laura Joseph M.D. on 06/10/2023 at 13:58
== END ==
PROVIDERS: PCP Physician Assistant; Referring Provider Physician Assistant; Visit Provider Physician Assistant
DX: N28.1 Cyst of kidney, acquired (principal); R91.1 Solitary pulmonary nodule; K44.9 Diaphragmatic hernia without obstruction or gangrene; R63.4 Abnormal weight loss
CPT/HCPCS: 71260; 74177; Q9967

== ENCOUNTER → 2023-07-16 12:02 | Outpatient (CLI) | payer MEDICARE, SELFPAY ==
[2023-07-16 19:41] LABS: BUN Creatinine Ratio 32.5 (6-22); Blood Urea Nitrogen 37 mg/dL (9-20); Cholesterol 154 mg/dL (140-199); Estimated Glomerular Filt Rate > 60 mL/min (>60); HDL Cholesterol 57 mg/dL (40-60); HEMOLYSIS < 15 (0-50); Iron 58 ug/dL (49-181); LDL Cholesterol Calculated 81 mg/dL (<100); Triglycerides 79 mg/dL (35-150)
[2023-07-16 19:54] LABS: Percent Iron Saturation 25 % (20-50); Total Iron Binding Capacity 229 ug/dL (261-462); Transferrin 175 mg/dL (206-381)
[2023-07-16 19:56] LABS: Transferrin 167 mg/dL (206-381)
[2023-07-16 20:00] LABS: Hematocrit 36.9 % (41-53); Hemoglobin 12.1 g/dL (13.5-17.5); Mean Corpuscular HGB Conc 32.7 % (30-36); Mean Corpuscular Hemoglobin 27.3 PG (26-34); Mean Corpuscular Volume 83.5 fL (80-100); Platelet Count 380 X10^3/uL (150-400); Red Blood Cell Count 4.42 X10^6/uL (4.5-5.9); Red Cell Distribution Width 14.5 % (11.6-14.8); White Blood Cell Count 8.1 X10^3/uL (4.5-11.0)
[2023-07-16 20:01] LABS: Add Manual Diff / Slide Review YES
[2023-07-16 20:05] LABS: Reticulocyte Count, Percent 0.5 % (0.9-2.6)
[2023-07-16 20:26] LABS: Neutrophils Absolute Manual 4374 /uL (3000-5900); Total Cells Counted 100
[2023-07-16 20:27] LABS: RBC Morphology Normal Morphology
[2023-07-16 20:36] LABS: Vitamin B12 616 pg/mL (239-931)
== END ==
PROVIDERS: PCP Physician Assistant; Visit Provider Family Medicine
DX: I10 Essential (primary) hypertension (principal); D64.9 Anemia, unspecified; E78.5 Hyperlipidemia, unspecified
CPT/HCPCS: 80061; 82565; 82607; 83540; 83550; 84466; 84520; 85007; 85025; 85045

== ENCOUNTER → 2024-09-27 10:32 | Outpatient (CLI) | payer MEDICARE, OTHER, SELFPAY ==
[2024-09-27 19:00] LABS: Add Manual Diff / Slide Review NO; Basophils Absolute Auto 0 /uL (0-100); Basophils Percent Auto 0.5 % (0-2); Eosinophils Absolute Auto 100 /uL (0-450); Hemoglobin 13.5 g/dL (13.5-17.5); Lymphocytes Absolute Auto 2500 /uL (1100-4500); Lymphocytes Percent Auto 40.2 % (25-40); Mean Corpuscular HGB Conc 32.2 % (30-36); Mean Corpuscular Hemoglobin 27.7 PG (26-34); Monocytes Absolute Auto 800 /uL (0-900); Monocytes Percent Auto 12.3 % (3-14); Neutrophils Absolute Auto 2800 /uL (1500-7000); Platelet Count 271 X10^3/uL (150-400); Red Blood Cell Count 4.88 X10^6/uL (4.5-5.9); Red Cell Distribution Width 14.8 % (11.6-14.8); White Blood Cell Count 6.3 X10^3/uL (4.5-11.0)
[2024-09-27 19:15] LABS: BUN Creatinine Ratio 24.6 (6-22); Blood Urea Nitrogen 29 mg/dL (9-20); Calcium 9.6 mg/dL (8.4-10.2); Carbon Dioxide 30 mmol/L (22-32); Chloride 103 mmol/L (98-107); Cholesterol 206 mg/dL (140-199); Estimated Glomerular Filt Rate 59 mL/min (>60); Glucose 102 mg/dL (80-110); HDL Cholesterol 79 mg/dL (40-60); HEMOLYSIS < 15 (0-50); LDL Cholesterol Calculated 115 mg/dL (<100); Potassium 4.8 mmol/L (3.4-5.1); Sodium 135 mmol/L (137-145); Triglycerides 61 mg/dL (35-150)
== END ==
PROVIDERS: PCP Physician Assistant; Visit Provider Family Medicine
DX: D64.9 Anemia, unspecified (principal); I10 Essential (primary) hypertension; E78.2 Mixed hyperlipidemia
CPT/HCPCS: 80048; 80061; 85025

== ENCOUNTER → 2024-10-25 13:08 | Outpatient (CLI) | payer MEDICARE, OTHER, SELFPAY ==
[2024-10-25 19:28] LABS: NT-proBNP (BNP-Adult 18+) 161 pg/mL (<450)
[2024-10-25 19:35] LABS: D Dimer 1418 ng/ml (<500)
[2024-10-25 19:49] LABS: Prostate Specific Antigen 0.233 ng/mL (0.10-4.00)
== END ==
PROVIDERS: PCP Physician Assistant; Visit Provider Family Medicine
DX: Z85.46 Personal history of malignant neoplasm of prostate (principal); R06.02 Shortness of breath; R60.0 Localized edema; Z86.718 Personal history of other venous thrombosis and embolism; I70.202 Unspecified atherosclerosis of native arteries of extremities, left leg
CPT/HCPCS: 83880; 84153; 85379

== ENCOUNTER → 2025-01-19 09:47 | Outpatient (CLI) | payer MEDICARE, OTHER, SELFPAY ==
[2025-01-19 19:00] LABS: Add Manual Diff / Slide Review NO; Basophils Absolute Auto 100 /uL (0-100); Basophils Percent Auto 1.1 % (0-2); Eosinophils Absolute Auto 100 /uL (0-450); Hematocrit 38.1 % (41-53); Hemoglobin 12.6 g/dL (13.5-17.5); Lymphocytes Absolute Auto 2400 /uL (1100-4500); Lymphocytes Percent Auto 36.6 % (25-40); Mean Corpuscular HGB Conc 33.2 % (30-36); Mean Corpuscular Hemoglobin 28.3 PG (26-34); Mean Corpuscular Volume 85.2 fL (80-100); Monocytes Absolute Auto 900 /uL (0-900); Monocytes Percent Auto 13.1 % (3-14); Neutrophils Absolute Auto 3100 /uL (1500-7000); Neutrophils Percent Auto 47.2 % (50-75); Platelet Count 274 X10^3/uL (150-400); Red Blood Cell Count 4.47 X10^6/uL (4.5-5.9); Red Cell Distribution Width 14.7 % (11.6-14.8); White Blood Cell Count 6.5 X10^3/uL (4.5-11.0)
[2025-01-19 19:06] LABS: Alanine Aminotransferase 29 IU/L (<50); Albumin 4.4 g/dL (3.5-5.0); Albumin Globulin Ratio 1.5 (1.0-2.8); Alkaline Phosphatase 78 U/L (38-126); Aspartate Aminotransferase 49 IU/L (17-59); Bilirubin Total 0.7 mg/dL (0.2-1.3); Blood Urea Nitrogen 27 mg/dL (9-20); Calcium 9.6 mg/dL (8.4-10.2); Carbon Dioxide 25 mmol/L (22-32); Chloride 105 mmol/L (98-107); Cholesterol 179 mg/dL (140-199); Estimated Glomerular Filt Rate > 60 mL/min (>60); Globulin 2.9 g/dL (1.7-4.1); Glucose 91 mg/dL (70-99); HDL Cholesterol 86 mg/dL (40-60); HEMOLYSIS < 15 (0-50); LDL Cholesterol Calculated 79 mg/dL (<100); Potassium 4.5 mmol/L (3.4-5.1); Sodium 139 mmol/L (137-145); Total Protein 7.3 g/dL (6.3-8.2); Triglycerides 71 mg/dL (35-150)
[2025-01-19 19:18] LABS: NT-proBNP (BNP-Adult 18+) 259 pg/mL (<450)
[2025-01-19 19:40] LABS: Prostate Specific Antigen 0.218 ng/mL (0.10-4.00)
== END ==
PROVIDERS: PCP Physician Assistant; Visit Provider Family Medicine
DX: I70.209 Unspecified atherosclerosis of native arteries of extremities, unspecified extremity (principal); Z85.46 Personal history of malignant neoplasm of prostate; D64.9 Anemia, unspecified; R06.02 Shortness of breath; N28.9 Disorder of kidney and ureter, unspecified; Z86.718 Personal history of other venous thrombosis and embolism; I10 Essential (primary) hypertension; E78.2 Mixed hyperlipidemia
CPT/HCPCS: 80053; 80061; 83880; 84153; 85025

== ENCOUNTER → 2025-08-03 10:58 | Outpatient (CLI) | payer MEDICARE, OTHER, SELFPAY ==
[2025-08-03 18:35] LABS: Add Manual Diff / Slide Review NO; Hematocrit 41.4 % (41-53); Hemoglobin 13.6 g/dL (13.5-17.5); Lymphocytes Absolute Auto 3300 /uL (1100-4500); Mean Corpuscular HGB Conc 33.0 % (30-36); Mean Corpuscular Hemoglobin 27.8 PG (26-34); Mean Corpuscular Volume 84.4 fL (80-100); Platelet Count 315 X10^3/uL (150-400)
[2025-08-03 18:49] LABS: Blood Urea Nitrogen 25 mg/dL (9-20); Calcium 9.4 mg/dL (8.4-10.2); Carbon Dioxide 28 mmol/L (22-32); Chloride 104 mmol/L (98-107); Estimated Glomerular Filt Rate > 60 mL/min (>60); Glucose 106 mg/dL (70-99); HEMOLYSIS 16 (0-50); Potassium 4.7 mmol/L (3.4-5.1); Sodium 139 mmol/L (137-145); Uric Acid 7.2 mg/dL (3.5-8.5)
== END ==
PROVIDERS: PCP Physician Assistant; Visit Provider Family Medicine
DX: M10.9 Gout, unspecified (principal); D64.9 Anemia, unspecified
CPT/HCPCS: 80048; 84550; 85025